=== PATIENT | female | born 1960 | race Two or more races ===

== ENCOUNTER 2016-11-30 10:07 | Inpatient (IN) | payer OTHER ==
--- NOTE | 2016-11-30 10:51 | PN ---
[facility] Progress Note Note: Pt. came in for detox, she registered then went outside the building to smoke. She came back in felt dizzy and nurse held her to prevent her from falling.while lying on the ground she vomited. 911 called and pt. sent to ED, report given to Dr. Balbir MD.
[2016-11-30 19:55] VITALS: BMI 25.4
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
[2016-11-30] MEDS ORDERED: hydrOXYzine PAMOATE 50 MG CAPSULE (FP) PO PRN (20:36)
[2016-11-30] MEDS ORDERED: guaiFENesin/D-METHORPHAN HB 10 ML UNIT-DOSE CUPS PO PRN (20:36)
[2016-11-30] MEDS ORDERED: IBUPROFEN 400 MG TABLET (FP) PO PRN (20:36)
[2016-11-30] MEDS ORDERED: LOPERAMIDE HCL 2 MG CAPSULE PO PRN (20:36)
[2016-11-30] MEDS ORDERED: chlordiazePOXIDE HCL 25 MG CAPSULE PO ONE (20:36)
[2016-11-30] MEDS ORDERED: MAG HYDROX/AL HYDROX/SIMETH 30 ML UNIT-DOSE CUP PO PRN (20:36)
[2016-11-30] MEDS ORDERED: MENTHOL/PHENOL 1 EACH UD MM PRN (20:36)
[2016-11-30] MEDS ORDERED: chlordiazePOXIDE HCL 25 MG CAPSULE PO PRN (20:36)
[2016-11-30] MEDS ORDERED: MAGNESIUM CITRATE 300 ML BOTTLE PO PRN (20:36)
[2016-11-30] MEDS ORDERED: P-EPHED 60MG/TRIPROLIDI 2.5MG TABLET PO PRN (20:36)
[2016-11-30] MEDS ORDERED: diphenhydrAMINE HCL 50 MG CAPSULE PO PRN (20:36)
[2016-11-30] MEDS ORDERED: MAGNESIUM HYDROX 2400MG/30ML ORAL SUSPENSION 30 ML CUP PO PRN (20:36)
[2016-11-30] MEDS ORDERED: ACETAMINOPHEN 325 MG TABLET (FP) PO PRN (20:36)
[2016-11-30] MEDS ORDERED: ALBUTEROL SO4 6.7 GM HFA INHALER IH SCH (20:45)
[2016-11-30] MEDS: chlordiazePOXIDE HCL 25 MG CAPSULE PO SCH (23:28)
[2016-11-30] MEDS: PRAMIPEXOLE DIHYDROCHLORIDE 1 MG TABLET PO SCH (23:28)
[2016-11-30] MEDS: THIAMINE HCL 100 MG TABLET (FP) PO SCH (23:28)
[2016-12-01] MEDS: chlordiazePOXIDE HCL 25 MG CAPSULE PO SCH ×4 (06:21→22:18)
[2016-12-01] MEDS: PRENATAL VITAMINS W/ FOLIC ACID TABLET (FP) PO SCH (11:04)
--- NOTE | 2016-12-01 11:04 | CONSULT ---
[facility] Psychiatric Consult - Data Date of interview: 12/01/16 Admission source: [facility] Identifying data: First admission to [facility] for this 56 y/o female seeking detox treatment for alcohol,cocaine and marijuana dependence.Patient is single,a mother of one,domiciled,unemployed and supported on [employer] benefits. Substance Abuse History: - Smoking Cessation. Smoking history: Current every day smoker. Have you smoked in the past 12 months: Yes. Aproximately how many cigarettes per day: 10. Hx Chewing Tobacco Use: No. Initiated information on smoking cessation: Yes. 'Breaking Loose' booklet given: 11/30/16. - Substances Abused. Alcohol. Route: Oral. Frequency: Daily. Amount used: beer 3 of 12 oz. Age of first use: 27. Date of Last Use: 11/30/16. Marijuana/Hashish. Route: Smoking. Frequency: 3-6 times per week. Amount used : 1 joint. Age of first use: 21. Date of Last Use: 11/30/16. Cocaine. Route: Smoking. Frequency: 1-2 times per week. Amount used: $100. Age of first use: 27. Date of Last Use: 11/29/16. Confirmed by patient. Medical History: Bronchial asthma,restless leg syndrome,neuropathy and a recent episode of syncope (just back from [facility]). Psychiatric History: Patient admits to one psychiatric hospitalization ([facility] in 2014) for a suicide attempt via overdose with medications.She reports that she stopped taking medications (zoloft,trazodone, seroquel,remeron) after discharge and ignored [facility] care.Used to be affiliated with the [facility].Ms Barraza endorses the diagnosis of Bipolar Disorder.Has been off psychotropic medications for three consecutive months (as per self- report). Physical/Sexual Abuse/Trauma History: Patient denies history of abuse. Additional Comment: Urine Drug Screen Results: THC-Marijuana, ARNULFO-Cocaine, OXY- Oxycodone.Noted. Mental Status Exam - Mental Status Exam Alert and Oriented to: Time, Place, Person Cognitive Function: Good Patient Appearance: Well Groomed Mood: Nervous, Anxious Affect: Mood Congruent Patient Behavior: Fatigued, Appropriate, Cooperative Speech Pattern: Clear Voice Loudness: Normal Thought Process: Goal Oriented Thought Disorder: Not Present Hallucinations: Denies Suicidal Ideation: Denies Homicidal Ideation: Denies Insight/Judgement: Poor Sleep: Poorly, Difficulty falling asleep Appetite: Good Muscle strength/Tone: Normal Gait/Station: Normal Psychiatric Findings - Problem List ([place] 1, 2,3) (1) Alcohol dependence with uncomplicated withdrawal Current Visit: Yes Status: Acute (2) Cannabis dependence, uncomplicated Current Visit: Yes Status: Acute (3) Cocaine dependence, uncomplicated Current Visit: Yes Status: Acute (4) Nicotine dependence Current Visit: Yes Status: Acute (5) Substance induced mood disorder Current Visit: Yes Status: Acute (6) Mood disorder Current Visit: Yes Status: Chronic (7) Restless leg syndrome Current Visit: Yes Status: Chronic (8) Syncope Current Visit: No Status: Acute Qualifiers: Syncope type: unspecified Qualified Code(s): R55 - Syncope and collapse (9) Insomnia Current Visit: Yes Status: Acute - Initial Treatment Plan Initial Treatment Plan: Psychoeducation.Detoxification.Medications : zoloft 50 mg po daily.Side effects/benefits discussed with the patient.She is in agreement with this careplan.Observation.Medications are verified with pharmacist @ [phone] at [facility] # [id number] : last seroquel script for seroquel was issued in April 2016;script for 50 mg of zoloft on 11/27/16 and gabapentin on 11/21/16.NO scripts needed at ddischarge.
[2016-12-01] MEDS: PRAMIPEXOLE DIHYDROCHLORIDE 1 MG TABLET PO SCH ×3 (11:05→22:18)
[2016-12-01] MEDS: BUDESONIDE/FORMETEROL FUMARATE 160/4.5 mcg INHALER IH SCH (11:05)
[2016-12-01] MEDS: NICOTINE 21 MG/24 HOURS TOPICAL PATCH TD SCH (11:05)
--- NOTE | 2016-12-01 11:57 | PN ---
S CIWA - CIWA Score Nausea/Vomitin-No Nausea/No Vomiting Muscle Tremors: 4-Moderate,w/Arms Extend Anxiety: 3 Agitation: 4-Moderately Restless Paroxysmal Sweats: 3 Orientation: 0-Oriented Tacttile Disturbances: 0-None Auditory Disturbances: 0-None Visual Disturbances: 0-None Headache: 2-Mild CIWA-Ar Total Score: 16 BHS Progress Note (SOAP) Subjective: restless legs sweats shakes interrupted sleep agitation Objective: 12/01/16 11:56 Vital Signs Temperature 98.6 F 12/01/16 11:10 Pulse Rate 76 12/01/16 11:10 Respiratory Rate 18 12/01/16 11:10 Blood Pressure 119/76 12/01/16 11:10 O2 Sat by Pulse Oximetry (%) Laboratory Tests 11/30/16 10:31 POC Glucometer 105 labs pending awake/alert ambulating no acute distress Assessment: 12/01/16 11:57 withdrawal sx Plan: continue detox increase fluids labs pending
[2016-12-01] MEDS ORDERED: PRAMIPEXOLE DIHYDROCHLORIDE 0.5 MG TABLET PO ONE (12:04)
[2016-12-01] MEDS: GABAPENTIN 300 MG CAPSULE (FP) PO SCH ×2 (14:24→22:18)
[2016-12-01 17:09] LABS: URINE APPEARANCE SLCLOUDY; URINE BILIRUBIN NEGATIVE (NEGATIVE); URINE BLOOD NEGATIVE (NEGATIVE); URINE COLOR YELLOW; URINE GLUCOSE (UA) NEGATIVE (NEGATIVE); URINE KETONE TRACE (NEGATIVE); URINE LEUK ESTERASE NEGATIVE (NEGATIVE); URINE NITRITE NEGATIVE (NEGATIVE); URINE PROTEIN NEGATIVE (NEGATIVE); URINE UROBILINOGEN NEGATIVE E.U./dl (0.2-1.0)
[2016-12-01] MEDS: THIAMINE HCL 100 MG TABLET (FP) PO SCH (22:18)
[2016-12-02] MEDS: PRAMIPEXOLE DIHYDROCHLORIDE 1 MG TABLET PO SCH ×3 (05:57→22:38)
[2016-12-02] MEDS: GABAPENTIN 300 MG CAPSULE (FP) PO SCH ×3 (05:57→22:38)
[2016-12-02] MEDS: chlordiazePOXIDE HCL 25 MG CAPSULE PO SCH ×3 (05:58→17:56)
[2016-12-02] MEDS: SERTRALINE HCL 50 MG TABLET (FP) PO SCH (10:43)
[2016-12-02] MEDS: PRENATAL VITAMINS W/ FOLIC ACID TABLET (FP) PO SCH (10:43)
[2016-12-02] MEDS: NICOTINE 21 MG/24 HOURS TOPICAL PATCH TD SCH (10:45)
[2016-12-02] MEDS: BUDESONIDE/FORMETEROL FUMARATE 160/4.5 mcg INHALER IH SCH (10:45)
--- NOTE | 2016-12-02 15:35 | PN ---
S CIWA - CIWA Score Nausea/Vomitin-No Nausea/No Vomiting Muscle Tremors: 4-Moderate,w/Arms Extend Anxiety: 3 Agitation: 4-Moderately Restless Paroxysmal Sweats: 3 Orientation: 0-Oriented Tacttile Disturbances: 0-None Auditory Disturbances: 0-None Visual Disturbances: 0-None Headache: 0-None Present CIWA-Ar Total Score: 14 BHS Progress Note (SOAP) Subjective: Sweating,interrupted sleep,restless,tremors,anxiety. Objective: 12/02/16 15:34 Vital Signs - 8 hr 12/02/16 12/02/16 12/02/16 10:00 15:15 15:18 Temperature 98.2 F 98.2 F 98.2 F Pulse Rate 84 84 77 Respiratory 18 18 16 Rate Blood Pressure 132/78 132/78 126/84 Laboratory Tests 11/30/16 11/30/16 12/01/16 10:30 10:31 06:00 POC Glucometer 105 Urine Color Yellow Urine Appearance Slcloudy Urine pH 5.0 Ur Specific [place] 1.025 Urine Protein Negative Urine Glucose (UA) Negative Urine Ketones Trace H Urine Blood Negative Urine Nitrite Negative Urine Bilirubin Negative Urine Urobilinogen Negative Ur Leukocyte Esterase Negative RPR Titer Nonreactive labs noted Assessment: 12/02/16 15:34 Withdrawal sx. Plan: Continue detox
[2016-12-02] MEDS: chlordiazePOXIDE 5 MG CAPSULE PO SCH (22:38)
[2016-12-02] MEDS: THIAMINE HCL 100 MG TABLET (FP) PO SCH (22:39)
[2016-12-03] MEDS: chlordiazePOXIDE 5 MG CAPSULE PO SCH ×3 (06:19→17:17)
[2016-12-03] MEDS: GABAPENTIN 300 MG CAPSULE (FP) PO SCH ×3 (06:19→22:32)
[2016-12-03] MEDS: PRAMIPEXOLE DIHYDROCHLORIDE 1 MG TABLET PO SCH ×3 (06:22→22:32)
[2016-12-03] MEDS: BUDESONIDE/FORMETEROL FUMARATE 160/4.5 mcg INHALER IH SCH (10:34)
[2016-12-03] MEDS: PRENATAL VITAMINS W/ FOLIC ACID TABLET (FP) PO SCH (10:34)
[2016-12-03] MEDS: SERTRALINE HCL 50 MG TABLET (FP) PO SCH (10:35)
[2016-12-03] MEDS: NICOTINE 21 MG/24 HOURS TOPICAL PATCH TD SCH (10:35)
--- NOTE | 2016-12-03 10:49 | PN ---
BHS Progress Note (SOAP) Subjective: Sweating,interrupted sleep,restless. Objective: 12/03/16 10:48 Vital Signs 12/03/16 12/03/16 12/03/16 03:30 06:49 10:00 Temperature 97.5 F L 97.2 F L Pulse Rate 79 79 Respiratory 18 16 16 Rate Blood Pressure 123/71 127/85 Laboratory Last Values POC Glucometer 105 UNITS (()) 11/30/16 10:31 Urine Color Yellow 11/30/16 10:30 Urine Appearance Slcloudy 11/30/16 10:30 Urine pH 5.0 (5.0-8.0) 11/30/16 10:30 Ur Specific [place] 1.025 (1.005-1.025) 11/30/16 10:30 Urine Protein Negative (NEGATIVE) 11/30/16 10:30 Urine Glucose (UA) Negative (NEGATIVE) 11/30/16 10:30 Urine Ketones Trace (NEGATIVE) H 11/30/16 10:30 Urine Blood Negative (NEGATIVE) 11/30/16 10:30 Urine Nitrite Negative (NEGATIVE) 11/30/16 10:30 Urine Bilirubin Negative (NEGATIVE) 11/30/16 10:30 Urine Urobilinogen Negative E.U./dl (0.2-1.0) 11/30/16 10:30 Ur Leukocyte Esterase Negative (NEGATIVE) 11/30/16 10:30 RPR Titer Nonreactive (NONREACTIVE) 12/01/16 06:00 u/a noted Assessment: 12/03/16 10:49 Withdrawal sx. Plan: Continue detox
[2016-12-03] MEDS ORDERED: IBUPROFEN 400 MG TABLET (FP) PO PRN (11:09)
[2016-12-03] MEDS: chlordiazePOXIDE HCL 10 MG CAPSULE PO SCH (22:32)
[2016-12-03] MEDS: THIAMINE HCL 100 MG TABLET (FP) PO SCH (22:32)
[2016-12-04] MEDS: chlordiazePOXIDE HCL 10 MG CAPSULE PO SCH ×2 (06:19→10:09)
[2016-12-04] MEDS: GABAPENTIN 300 MG CAPSULE (FP) PO SCH (06:19)
[2016-12-04] MEDS: PRAMIPEXOLE DIHYDROCHLORIDE 1 MG TABLET PO SCH (06:19)
[2016-12-04 07:11] VITALS: BP 142/91; PULSE 84; TEMP 98.2
--- NOTE | 2016-12-04 09:25 | DS ---
[facility] Detox Discharge Summary Admission Date: 11/30/16 Discharge Date: 12/04/16 - History Present History: Alcohol Dependence, Cannabis Dependence, Cocaine Dependence - Physical Exam Results Vital Signs: Vital Signs Temperature 98.2 F 12/04/16 06:00 Pulse Rate 84 12/04/16 06:00 Respiratory Rate 18 12/04/16 06:00 Blood Pressure 142/91 12/04/16 06:00 O2 Sat by Pulse Oximetry (%) - Treatment Hospital Course: Detox Protocol Followed, Detoxed Safely, Responded well, Discharged Condition Good - Medication Discharge Medications: Ambulatory Orders Albuterol Sulfate [Proventil HFA Inhaler -] 1 puff IH PRN 11/30/16 Budesonide/Formeterol Fumarate [SYMBICORT 160/4.5mcg -] 1 inh PO DAILY 11/30/16 Gabapentin 900 mg PO TID 11/30/16 Pramipexole Di-HCl [Mirapex] 1 mg PO TID 11/30/16 Sertraline HCl [Zoloft] 50 mg PO DAILY 11/30/16
[2016-12-04] MEDS: PRENATAL VITAMINS W/ FOLIC ACID TABLET (FP) PO SCH (09:33)
[2016-12-04] MEDS: SERTRALINE HCL 50 MG TABLET (FP) PO SCH (09:33)
[2016-12-04] MEDS: BUDESONIDE/FORMETEROL FUMARATE 160/4.5 mcg INHALER IH SCH (09:34)
[2016-12-04] MEDS: NICOTINE 21 MG/24 HOURS TOPICAL PATCH TD SCH (09:34)
== END 2016-12-04 09:50 | disposition home or self-care (01) | DRG 774 ==
LOC: YASAS 10:07 → Y6N 20:38
PROVIDERS: ADMIT Internal Medicine; ATTEND Internal Medicine
PROC: HZ2ZZZZ Detoxification Services for Substance Abuse Treatment (ICD-10-PCS; principal; 2016-12-03)
DX: F10.230 Alcohol dependence with withdrawal, uncomplicated (principal); F14.20 Cocaine dependence, uncomplicated; F12.20 Cannabis dependence, uncomplicated; F17.210 Nicotine dependence, cigarettes, uncomplicated; F19.24 Other psychoactive substance dependence with psychoactive substance-induced mood disorder; F39 Unspecified mood [affective] disorder; G25.81 Restless legs syndrome; G47.00 Insomnia, unspecified; J45.909 Unspecified asthma, uncomplicated; Z86.79 Personal history of other diseases of the circulatory system; Z91.5 Personal history of self-harm
CPT/HCPCS: 36415; 81003; 86593

== ENCOUNTER 2016-11-30 10:54 | Emergency (ER) | payer OTHER ==
--- NOTE | 2016-11-30 11:06 | PDOC ---
History of Present Illness - General History Source: Patient, Old Records Exam Limitations: No Limitations - History of Present Illness Initial Comments: 11/30/16 11:20 The patient is a 56 year old female with a significant past medical history of substance abuse, brought by ambulance to the Emergency Department s/p syncopal episode just prior to arrival. The patient reports that she presented to detox this morning to be admitted, went outside to smoke, and returned feeling dizzy. As per records, a nurse caught the patient from falling. As per patient, she remembers waking up on the floor, vomiting. She admits that vomit was red, colored similar to the bottle of wine she drank last night. She admits to alcohol abuse, as well as smoking cocaine as of recently. She states that she is still dizzy, and nauseous. Her last drink was 6/7am this morning. The patient denies chest pain, palpitations, and shortness of breath. Patient denies fever, chills, and cough. Patient denies headache, or visual changes. Past Medical Hx: asthma, restless leg syndrome Social Hx: alcohol abuse, cocaine use <Deborah Carter - Last Filed: 11/30/16 15:21> <Rosalina Mcgregor - Last Filed: 11/30/16 18:26> - General Stated Complaint: SYNCOPE Time Seen by Provider: 11/30/16 11:05 Past History <Deborah Carter - Last Filed: 11/30/16 15:21> <Rosalina Mcgregor - Last Filed: 11/30/16 18:26> - Past Medical History Allergies/Adverse Reactions: Allergies Allergy/AdvReac Type Severity Reaction Status Date / Time No Known Allergies Allergy Verified 11/30/16 11:07 Home Medications: Ambulatory Orders Gabapentin 900 mg PO TID 11/30/16 Pramipexole Di-HCl [Mirapex] 1 mg PO DAILY 11/30/16 Sertraline HCl [Zoloft] 50 mg PO DAILY 11/30/16 Review of Systems - Review of Systems Able to Perform ROS?: Yes Comments:: 11/30/16 11:21 CONSTITUTIONAL: Present: + dizzy Absent: fever, no chills, no fatigue EYES: Absent: visual changes ENT: Absent: ear pain, no sore throat CARDIOVASCULAR: Absent: chest pain, no palpitations RESPIRATORY: Absent: cough, no SOB GI: Present: + nausea, + vomiting Absent: abdominal pain, no constipation, no diarrhea GENITOURINARY: Absent: dysuria, no frequency, no hematuria MUSCULOSKELETAL: Absent: back pain, no arthralgia, no myalgia SKIN: Absent: rash NEURO: Present: + syncopal/ near syncopal episode Absent: headache <Deborah Carter - Last Filed: 11/30/16 15:21> *Physical Exam - Vital Signs Last Vital Signs Temp Pulse Resp BP Pulse Ox 98.2 F 60 18 96/63 100 11/30/16 11:08 11/30/16 11:08 11/30/16 11:08 11/30/16 11:08 11/30/16 11:08 - Physical Exam Comments: 11/30/16 11:27 GENERAL: Well-appearing, well-nourished. No apparent distress. HEENT: Few tongue fasciculations. Normocephalic, atraumatic. PERRL, EOM intact. CARDIOVASCULAR: Normal S1, S2. Regular rate and rhythm. PULMONARY: Clear to auscultation bilaterally. ABDOMEN: Soft, non-distended, non-tender. EXTREMITIES: Normal ROM in all four extremities. No gross deformities. SKIN: Warm, dry. No rash NEUROLOGICAL: No focal neurological deficits. <Deborah Carter - Last Filed: 11/30/16 15:21> ED Treatment Course - LABORATORY CBC & Chemistry Diagram: 11/30/16 10:13 11/30/16 10:13 - RADIOLOGY Radiograph Interpretation: 11/30/16 15:21 Chest XRay As reviewed by Dr. Juan J Palomino IMPRESSION: No evidence of active pulmonary disease. <Deborah Carter - Last Filed: 11/30/16 15:21> - LABORATORY CBC & Chemistry Diagram: 11/30/16 10:13 11/30/16 10:13 <Rosalina Mcgregor - Last Filed: 11/30/16 18:26> Medical Decision Making - Medical Decision Making 11/30/16 12:19 Pt presents to the ED after sent in from [facility] for syncope. Patient reports drinking a bottle of wine last night, which is more than she usually drinks, and using cocaine. + nausea and one episode of non bloody, non bilious vomiting. Still complaining of nausea and lightheadness. Exam is unremarkable. Differential includes severe dehydration, cardiac syncope, less likely ACS. Will check labs and give IV hydration and nausea control. Will reassess and monitor for signs of ETOH withdrawal. 11/30/16 18:25 Labs and EKG are within normal limits. Patient feels improved. Two sets of troponins are negative. Will discharge back to [facility]. <Rosalina Mcgregor - Last Filed: 11/30/16 18:26> *DC/Admit/Observation/Transfer - Attestations Scribe Attestion: 11/30/16 11:21 Documentation prepared by Deborah Carter, acting as medical office rep for Rosalina Mcgregor MD. <Deborah Carter - Last Filed: 11/30/16 15:21> - Discharge Dispostion Admit: No <Rosalina Mcgregor - Last Filed: 11/30/16 18:26> Diagnosis at time of Disposition: Syncope Qualifiers: Syncope type: unspecified Qualified Code(s): R55 - Syncope and collapse - Discharge Dispostion Disposition: HOME Condition at time of disposition: Good
[2016-11-30 11:11] VITALS: TEMP 98.2; BMI 25.4
[2016-11-30] MEDS ORDERED: SODIUM CHLORIDE 0.9% 500 ML INFUS.BAG IV ONE (11:13)
[2016-11-30] MEDS ORDERED: ONDANSETRON 4 MG/2 ML VIAL IVPUSH ONE (11:13)
[2016-11-30 11:50] LABS: BASOPHIL 0.7 % (0-2.0); EOSINOPHIL 3.6 % (0-4.5); MCH 26.3 pg (25.7-33.7); MCHC 32.1 g/dl (32.0-36.0); MEAN PLT VOLUME 7.9 fl (7.5-11.1); NEUTROPHILS 61.3 % (42.8-82.8); PLATELET COUNT 248 K/MM3 (134-434); RDW 14.2 % (11.6-15.6); WHITE BLOOD COUNT 8.6 K/mm3 (4.0-10.0)
[2016-11-30] MEDS ORDERED: ONDANSETRON 4 MG/2 ML VIAL ONE (12:14)
[2016-11-30 12:43] LABS: ALBUMIN 3.6 g/dl (3.4-5.0); ANION GAP 10 (8-16); CALCIUM 8.8 mg/dL (8.5-10.1); CO2 22 mmol/L (21-32); CREATININE 0.7 mg/dL (0.55-1.02); GLUCOSE,RANDOM 77 mg/dL (74-106); TOT PROT 7.1 g/dl (6.4-8.2)
[2016-11-30 12:44] LABS: ALK PHOS 115 U/L (45-117); BILIRUBIN,TOTAL 0.6 mg/dL (0.2-1.0); SGOT/AST 32 U/L (15-37); SGPT/ALT 21 U/L (12-78); TROPONIN I < 0.02 ng/ml (0.00-0.05)
--- NOTE | 2016-11-30 16:38 | EKG ---
Test Reason : Blood Pressure : / mmHG Vent. Rate : 060 BPM Atrial Rate : 060 BPM P-R Int : 140 ms QRS Dur : 080 ms QT Int : 430 ms P-R-T Axes : 061 058 056 degrees QTc Int : 430 ms NORMAL SINUS RHYTHM NORMAL ECG NO PREVIOUS ECGS AVAILABLE Confirmed by WOJCIECH CAIN MD ([id number]) on 11/30/2016 4:37:51 PM Referred By: Confirmed By:WOJCIECH CAIN MD
[2016-11-30 18:21] LABS: TROPONIN I < 0.02 ng/ml (0.00-0.05)
[2016-11-30 19:09] VITALS: BP 105/72; PULSE 64
== END 2016-11-30 19:09 | disposition home or self-care (01) ==
LOC: JER 10:54
PROC: 3E033GC Introduction of Other Therapeutic Substance into Peripheral Vein, Percutaneous Approach (ICD-10-PCS; principal; 2016-11-30)
PROC: 3E0337Z Introduction of Electrolytic and Water Balance Substance into Peripheral Vein, Percutaneous Approach (ICD-10-PCS; 2016-11-30)
DX: R55 Syncope and collapse (principal); J45.909 Unspecified asthma, uncomplicated; G25.81 Restless legs syndrome
CPT/HCPCS: 36415; 71010-TC; 80053; 82550; 82553; 84484; 85025; 93005; 93010; 99285-25